=== PATIENT | male | born 1980 | race African-American/Black ===

== ENCOUNTER → 2017-11-14 | Day surgery (SDC) | payer OTHER ==
[~2017-11-14] VITALS: Ht 172.7 cm; Wt 88.5 kg
--- NOTE | 2017-11-14 13:48 | Operative Report ---
Operative/Inv Procedure Report Surgery Date: 11/14/17 Name of Procedure: circumcision Pre-Operative Diagnosis: phimosis, balanitis Post-Operative Diagnosis: same Estimated Blood Loss: less than 50ml Surgeon/Police Chief: Brooke Nunez MD Anesthesia: local monitored anesthesi Specimens: foreskin Complications: none Condition: stable Operative Indication: phimosis and balanitis Operative/Procedure Note Note: 37-year-old male with a history of phimosis and balanitis. He wished to have a circumcision and the risks benefits and alternatives were given to the patient in the office as well as the holding area. Consent was signed. Patient was taken to the operating placed on the operating table in supine position. IV antibiotics were infused. IV sedation was begun. This prepped and draped in the standard sterile fashion. A penile block was then given with Marcaine quarter percent. Later in the surgery 1% lidocaine was then given due to need for more pain management. The foreskin was grasped at the 12 36 and 9: 00 with straight clamps. The foreskin was tented up. A straight Riky was then used to clamp the excess foreskin to the tip of the hernandez. This was cut with a #15 blade and sent off to pathology. The clamp was released and the bleeding was point coagulated with the Bovie cautery and DeBakey forceps. This was followed by interrupted 4-0 chromic sutures circumferentially. 4 sutures were placed at 12 36 and 9:00 to separate out quadrants. Each of the quadrants were then closed and no active bleeding was noted. Bacitracin was applied to the incision site followed by Xeroform dressing followed by Kopan. Sponge and needle count were correct at the end of the case. Patient tolerated procedure well. Findings: phimotic foreskin Discharge Disposition: Same Day Admissions
== END ==
LOC: STS 01:58
DX: N47.1 Phimosis (principal); N48.1 Balanitis; F52.4 Premature ejaculation; N52.9 Male erectile dysfunction, unspecified; I10 Essential (primary) hypertension
CPT/HCPCS: 93005; 93010; J0131; J0690; J2001; J2250